=== PATIENT | male | born 1955 | race Two or more races ===

== ENCOUNTER 2024-05-18 09:43 | Observation (INO) | payer BC, OTHER ==
[2024-05-18 10:07] VITALS: BMI 25.0
[2024-05-18 10:53] LABS: BASO % 0.4 % (0-2.0); EOS % 0.3 % (0-4.5); HEMATOCRIT 44.6 % (35.4-49); HEMOGLOBIN 15.5 GM/dL (11.7-16.9); LYMPH % 21.7 % (8-40); MCH 31.9 pg (25.7-33.7); MCHC 34.7 g/dl (32.0-35.9); MEAN CELL VOLUME 91.9 fl (80-96); MEAN PLT VOLUME 8.4 fl (7.5-11.1); MONO % 10.9 % (3.8-10.2); NEUT % 66.7 % (42.8-82.8); PLATELET COUNT 266 10^3/uL (134-434); RBC 4.85 M/mm3 (4.00-5.60); RDW 13.7 % (11.9-15.9); WHITE BLOOD COUNT 7.7 K/mm3 (4.0-10.0)
[2024-05-18] MEDS ORDERED: dilTIAZem HCL 125 MG/25 ML - 25 ML VIAL ONE (10:53)
[2024-05-18 11:03] LABS: INR 1.13 (0.83-1.09); PROTHROMBIN TIME (PATIENT) 12.7 SEC (9.7-13.0)
[2024-05-18 11:06] LABS: ACTIVATED PTT 29.2 SECONDS (25.2-36.5)
[2024-05-18] MEDS: dilTIAZem HCL 50 MG/10 ML - 10 ML VIAL IVPUSH ONE (11:08)
[2024-05-18 11:11] LABS: POTASSIUM 4.1 mmol/L (3.5-5.1)
[2024-05-18 11:13] LABS: CALCIUM 9.5 mg/dL (8.5-10.1)
[2024-05-18 11:14] LABS: ALBUMIN 3.5 g/dl (3.4-5.0); BLOOD UREA NITROGEN 18.5 mg/dL (7-18); MAGNESIUM 1.9 mg/dL (1.8-2.4)
[2024-05-18 11:17] LABS: CREATININE 1.1 mg/dL (0.55-1.3)
[2024-05-18] MEDS ORDERED: dilTIAZem HCL 60 MG TABLET ONE (11:17)
[2024-05-18 11:19] LABS: BILIRUBIN,TOTAL 1.4 mg/dL (0.2-1); TOT PROT 7.2 g/dl (6.4-8.2)
[2024-05-18] MEDS ORDERED: GABAPENTIN 100 MG CAPSULE ONE (13:08)
[2024-05-18] MEDS ORDERED: metoPROLOL SUCCINATE 25 MG TAB.SR.24H (FP) PO ONE (13:08)
[2024-05-18] MEDS: GABAPENTIN 100 MG CAPSULE PO SCH (13:10)
[2024-05-18] MEDS: metoPROLOL SUCCINATE 25 MG TAB.SR.24H (FP) PO SCH (13:10)
[2024-05-18] MEDS: RIVAROXABAN 20 MG TABLET PO SCH (17:23)
[2024-05-18] MEDS: ROSUVASTATIN CA 20 MG TABLET PO SCH (21:24)
[2024-05-19] MEDS ORDERED: PATIENT'S OWN MEDICATION (NON-FORMULARY) (Lisinopril/Hydrochlorothiazide [Lisinopril-Hctz PO SCH (10:00)
[2024-05-19] MEDS: HYDROCHLOROTHIAZIDE 12.5 MG CAPSULE (FP) PO SCH (10:45)
[2024-05-19] MEDS: LISINOPRIL 10 MG TABLET PO SCH (10:45)
[2024-05-19 18:28] VITALS: PULSE 76
[2024-05-19] MEDS: ENOXAPARIN NA (PORCINE) 80 MG/0.8 ML DISP.SYRIN SQ SCH (21:07)
[2024-05-19 21:12] VITALS: BP 110/73; RESP 17; TEMP 97.9
== END 2024-05-20 00:30 | disposition short-term general hospital (02) ==
LOC: JER 09:43 → JERBED 12:04 → J4S 13:28
PROVIDERS: ADMIT Internal Medicine; ATTEND Internal Medicine
PROC: 3E033GC Introduction of Other Therapeutic Substance into Peripheral Vein, Percutaneous Approach (ICD-10-PCS; principal; 2024-05-18)
PROC: 3E023GC Introduction of Other Therapeutic Substance into Muscle, Percutaneous Approach (ICD-10-PCS; 2024-05-18)
DX: I48.0 Paroxysmal atrial fibrillation (principal); I10 Essential (primary) hypertension; E78.5 Hyperlipidemia, unspecified; R09.02 Hypoxemia; B02.29 Other postherpetic nervous system involvement; Z86.19 Personal history of other infectious and parasitic diseases
CPT/HCPCS: 36415; 71045-TC-FY; 80053; 83735; 84484; 85025; 85610; 85730; 93005; 93010; 93306-TC; 99291; G0378